=== PATIENT | male | born 1990 ===

== ENCOUNTER 2016-09-29 06:02 | Emergency (ER) | payer OTHER ==
[2016-09-29 06:52] VITALS: TEMP 99
[2016-09-29 07:30] VITALS: BP 120/77; PULSE 114; RESP 16; O2SAT 100
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
[2016-09-29 09:26] LABS: ALKALINE PHOSPHATASE 130 U/L (38-126); ALT/SGPT 28 U/L (21-72); AST/SGOT 34 U/L (17-59); BILIRUBIN,TOTAL 0.2 mg/dl (0.2-1.3); BLOOD UREA NITROGEN 14 mg/dl (9-20); CALCIUM 8.9 mg/dL (8.4-10.2); CARBON DIOXIDE 24 mmol/L (22-30); CHLORIDE 104 mmol/L (98-107); GFR AFRICAN-AMERICAN > 60; GLUCOSE,RANDOM 120 mg/dL (75-110); SODIUM 143 mmol/l (132-148); TOTAL PROTEIN 8.2 G/DL (6.3-8.2)
--- NOTE | 2016-09-29 10:18 | CT ---
PROCEDURE: CT HEAD WITHOUT CONTRAST. HISTORY: alcohol abuse, altered COMPARISON: Comparison is made to the previous study dated 02/25/2015 TECHNIQUE: Axial computed tomography images were obtained through the head/brain without intravenous contrast. Radiation dose: Total exam DLP = 867.3 mGy-cm. This CT exam was performed using one or more of the following dose reduction techniques: Automated exposure control, adjustment of the mA and/or kV according to patient size, and/or use of iterative reconstruction technique. FINDINGS: HEMORRHAGE: No intracranial hemorrhage. BRAIN: No mass effect or edema. No atrophy or chronic microvascular ischemic changes. VENTRICLES: Unremarkable. No hydrocephalus. CALVARIUM: Unremarkable. PARANASAL SINUSES: Unremarkable as visualized. No significant inflammatory changes. MASTOID AIR CELLS: Unremarkable as visualized. No inflammatory changes. OTHER FINDINGS: None. IMPRESSION: No evidence of acute intracranial hemorrhage intracranial collection mass effect or midline shift.
[2016-09-29 10:23] LABS: RBC URINE < 1 /hpf (0-3); URINE BILIRUBIN NEGATIVE (NEGATIVE); URINE BLOOD NEGATIVE (NEGATIVE); URINE COLOR COLORLESS (YELLOW); URINE GLUCOSE (UA) NEGATIVE (Normal); URINE KETONE NEGATIVE (NEGATIVE); URINE LEUKOCYTE ESTERASE NEGATIVE Leu/uL (Negative); URINE PROTEIN NEGATIVE (NEGATIVE); URINE UROBILINOGEN 0.2 mg/dL (0.2-1.0)
[2016-09-29 10:24] LABS: URINE BACTERIA RARE (<OCC)
--- NOTE | 2016-09-29 12:37 | RAD ---
HISTORY: crisis eval COMPARISON: No prior. FINDINGS: LUNGS: No active pulmonary disease. PLEURA: No significant pleural effusion identified, no pneumothorax apparent. CARDIOVASCULAR: Normal. OSSEOUS STRUCTURES: No significant abnormalities. VISUALIZED UPPER ABDOMEN: Normal. OTHER FINDINGS: None. IMPRESSION: No active disease.
--- NOTE | 2016-09-30 12:32 | CARD ---
APPROVED REPORT EKG Measurement Heart [id number] <Conclusion> Normal sinus rhythm Left anterior fascicular block Abnormal ECG
== END 2016-09-29 10:49 ==
LOC: H.ER 06:02
DX: F10.129 Alcohol abuse with intoxication, unspecified (principal); Y90.7 Blood alcohol level of 200-239 mg/100 ml

== ENCOUNTER 2017-12-02 01:04 | Emergency (ER) | payer SELFPAY ==
[2017-12-02 01:17] VITALS: RESP 16; O2SAT 98
--- NOTE | 2017-12-02 02:48 | ED PDOC ---
HPI: General Adult Time Seen by Provider: 12/02/17 01:39 Chief Complaint (Nursing): Medical Clearance Past Medical History Vital Signs: Last Vital Signs Temp 98.7 F 12/02/17 01:15 Pulse 71 12/02/17 01:15 Resp 16 12/02/17 01:15 BP 130/67 12/02/17 01:15 Pulse Ox 98 12/02/17 01:15 - Medical History PMH: Denies: Diabetes, Hepatitis, HIV, HTN, Seizures, Sexually Transmitted Disease - Family History Family History: States: Unknown Family Hx - Home Medications Home Medications: Ambulatory Orders Medication Instructions Recorded Meclizine HCl [Meclizine HCl] 1 tab PO Q6 PRN #20 tab 02/25/15 - Allergies Allergies/Adverse Reactions: Allergies Allergy/AdvReac Type Severity Reaction Status Date / Time No Known Allergies Allergy Verified 02/25/15 19:00 - ECG O2 Sat by Pulse Oximetry: 98 Disposition - Clinical Impression Clinical Impression: Dizziness, Medical clearance for incarceration - Disposition Referrals: [facility] [Outside] Condition: STABLE Additional Instructions: Patient is medically and psychiatrically cleared for incarceration. Instructions: Vertigo (a Type of Dizziness) (DC) Forms: [employer] (Yi) Print Language: AUSTRIAN
[2017-12-02 04:50] VITALS: BP 122/71; PULSE 78; TEMP 98.2
== END 2017-12-02 02:45 ==
LOC: H.ER 01:04
DX: R42 Dizziness and giddiness (principal); Z02.89 Encounter for other administrative examinations